=== PATIENT | male | born 1945 | race Hispanic/Latino ===

== ENCOUNTER 2017-10-28 06:50 | Day surgery (SDC) | payer MEDICARE, BC ==
[2017-01-11 09:44] VITALS: BMI 23.7
[2017-10-28 07:53] LABS: BASO # 0.03 K/mm3 (0.0-2.0); BASO % 0.4 % (0.0-3.0); EOS # 0.1 (0.0-0.7); EOS % 1.3 % (1.5-5.0); GRAN # 4.59 (1.4-6.5); GRAN % 61.6 % (50.0-68.0); HEMOGLOBIN 14.9 g/dL (14.0-18.0); LYMPH # 2.2 (1.2-3.4); LYMPH % 29.5 % (22.0-35.0); MEAN CORPUSCULAR HEMOGLOBIN 33.9 pg (25.0-35.0); MEAN CORPUSCULAR HGB CONC 34.9 g/dl (31.0-37.0); MEAN PLATELET VOLUME 9.8 fl (7.0-11.0); MONO # 0.5 (0.1-0.6); MONO % 7.2 % (1.0-6.0); RBC 4.4 10^6/uL (3.5-6.1); RED CELL DISTRIBUTION WIDTH 12.8 % (11.5-14.5); WHITE BLOOD COUNT 7.5 10^3/ul (4.5-11.0)
[2017-10-28 08:00] LABS: BLOOD UREA NITROGEN 20 mg/dL (7-21); GFR AFRICAN-AMERICAN > 60; GFR NON-AFRICAN AMERICAN 50; HDL CHOLESTEROL 62 mg/dL (29-60)
[2017-10-28 08:07] LABS: INR 1.01 (0.93-1.08); PARTIAL THROMBOPLASTIN TIME 30.4 Seconds (25.1-36.5); PROTHROMBIN TIME 11.6 SECONDS (9.4-12.5)
[2017-10-28 08:10] LABS: LDL CHOLESTEROL 51 mg/dL (0-129)
[2017-10-28] MEDS ORDERED: Potassium Chloride 20 mEq ER Tab PO ONE (08:24)
[2017-10-28] MEDS ORDERED: Lidocaine PF 2% (5 ml) Inj (For Cardiac Arrhy) IV ONE (08:34)
[2017-10-28] MEDS ORDERED: Phenylephrine 10 mg/ml Inj ONE ×2 (08:34→10:45)
[2017-10-28] MEDS ORDERED: Nitroglycerin 50mg in D5W 0 MG/0 ML BOTTLE IV ONE ×2 (08:34→10:45)
[2017-10-28] MEDS ORDERED: Iodixanol 320 MG/ML 200 ML BOTTLE IV ONE (08:36)
[2017-10-28] MEDS ORDERED: Iodixanol 320 MG/ML 100 ML BOTTLE IV ONE (08:36)
[2017-10-28] MEDS ORDERED: Iohexol 350mgl/ml 50 ML ONE (08:36)
[2017-10-28] MEDS ORDERED: Midazolam 2 MG/2 ML VIAL ONE ×3 (08:56→09:23)
--- NOTE | 2017-10-28 10:48 | CARDCATH ---
PROCEDURE DATE: 10/28/2017 CARDIAC CATHETERIZATION AND PTCA HISTORY: The patient is a 72-year-old male, who presented with an abnormal stress test. There were PVCs as well as ST depressions during his exercise. Because of his left main stenting that was performed at [place], and the patient with a history of diffuse atherosclerosis, a cardiac catheterization was recommended. PROCEDURE: Left heart catheterization with coronary arteriography and left ventriculogram followed by PTCA and stent of an RCA. The right femoral artery was cannulated with a 6-B[place] sheath. There were no complications. I performed moderate sedation, which included the presence of an independent trained observer that assisted in monitoring the patient's level of consciousness and physiologic status. After administration of Versed and fentanyl, my intra service time was 30 minutes. The findings on catheterization revealed a left ventricle that contracted normally. Estimated ejection fraction of 60-70%. The patient had a codominant circulation. The RCA revealed diffuse atherosclerosis with diffusely tortuous and calcified with a new eccentric 90% stenosis in the midportion. There was a 40-50% stenosis in the proximal portion. The left main artery review was patent with a patent stent in the distal left main artery. The LAD and diagonal vessels revealed diffuse atherosclerosis without critical lesions. The ostium of the circumflex had a 40-50% stenosis. The patient was started on Angiomax on the fluoroscopic guide, the guiding catheter was placed in the ostium of the RCA. An ATW wire was used to cross the critical lesion. A 2 balloon was utilized to dilate the lesion and stents would not cross past the proximal portion of the vessel due to the marked tortuosity and the calcification despite using extra support techniques including a guideliner. Repeat coronary arteriography revealed a residual 30-40% stenosis in the mid RCA. Angio-Seal was used to close the femoral artery site. The patient tolerated the procedure well. IMPRESSION: 1. In summary, the procedure was successful for percutaneous transluminal coronary angioplasty of a 90% mid right coronary artery stenoses. Stent would not cross due to the marked tortuosity and calcification in the proximal vessel. 2. Cardiac catheterization revealed a patent stent in the left main artery, 50% ostial circumflex stenosis, which is unchanged from his previous. 3. A new 90% stenosis in the mid right coronary artery and a codominant circulation. 4. Left ventricular function is normal. PLAN: Given these findings, the patient will remain on the same medication, which includes aspirin as well as Brilinta. He will continue the cardiac risk reduction program. Rudy Vo MD
--- NOTE | 2017-10-28 10:57 | CARD ---
APPROVED REPORT Date of service: 10/28/2017 EKG Measurement Heart [id number] [place] 158P60 [id number] <Conclusion> Normal sinus rhythm Possible Left atrial enlargement Septal infarct, age Old. Abnormal ECG
[2017-10-28 15:23] VITALS: RESP 20
--- NOTE | 2017-10-28 16:13 | CARD ---
APPROVED REPORT Date of service: 10/28/2017 EKG Measurement Heart [id number] [place] 182P51 [id number] <Conclusion> Marked sinus bradycardia Left ventricular hypertrophy with repolarization abnormality Cannot rule out Septal infarct, age undetermined Abnormal ECG
[2017-10-28] MEDS: Sodium Chloride 0.9% 1,000 ML IV SCH ×2 (17:30→20:00)
[2017-10-29 00:01] VITALS: TEMP 98.4; O2SAT 96
[2017-10-29 06:52] VITALS: BP 159/72
[2017-10-29 06:59] LABS: BASO # 0.04 K/mm3 (0.0-2.0); BASO % 0.5 % (0.0-3.0); EOS # 0.1 (0.0-0.7); EOS % 1.9 % (1.5-5.0); GRAN # 4.53 (1.4-6.5); GRAN % 62.3 % (50.0-68.0); HEMOGLOBIN 13.5 g/dL (14.0-18.0); LYMPH # 2.1 (1.2-3.4); LYMPH % 28.2 % (22.0-35.0); MEAN CELL VOLUME 98.8 fl (80.0-105.0); MEAN CORPUSCULAR HGB CONC 33.4 g/dl (31.0-37.0); MONO # 0.5 (0.1-0.6); MONO % 7.1 % (1.0-6.0); RBC 4.09 10^6/uL (3.5-6.1); WHITE BLOOD COUNT 7.3 10^3/ul (4.5-11.0)
[2017-10-29 07:46] LABS: BLOOD UREA NITROGEN 20 mg/dL (7-21); CALCIUM 8.4 mg/dL (8.4-10.5); GFR AFRICAN-AMERICAN > 60; GFR NON-AFRICAN AMERICAN 50
[2017-10-29] MEDS ORDERED: Metoprolol Succinate 50 mg XL Tab PO SCH ×2 (08:00→10:00)
[2017-10-29] MEDS: Sodium Chloride 0.9% 1,000 ML IV SCH (08:14)
[2017-10-29 08:38] VITALS: PULSE 75
--- NOTE | 2017-10-29 12:12 | CARD ---
APPROVED REPORT Date of service: 10/29/2017 EKG Measurement Heart [id number] [place] 168P59 [id number] <Conclusion> Sinus bradycardia with premature atrial complexes Possible Left atrial enlargement Left ventricular hypertrophy with repolarization abnormality Cannot rule out Septal infarct, age undetermined Abnormal ECG
--- NOTE | 2017-10-29 12:43 | DS ---
REASON FOR DICTATION: Covering Dr. Rudy Vo. BRIEF CLINICAL HISTORY: A 72-year-old female with abnormal stress test, underwent yesterday cardiac catheterization and balloon angioplasty of RCA was done. The patient remained stable. Today, denies any chest pain, shortness of breath or any palpitation. PHYSICAL EXAMINATION: VITAL SIGNS: Temperature afebrile, heart rate 75, blood pressure 150/74. HEENT: PERRLA. Extraocular muscles intact. NECK: Supple. No carotid bruit. No thyromegaly. CHEST: Clear to auscultation. HEART: S1 and S2 regular. ABDOMEN: Soft. EXTREMITIES: Clubbing and cyanosis negative. LABORATORY DATA: Blood workup as follows; WBC 7.3, hemoglobin 13.5, hematocrit 40.4, platelet count 240. Chemistry shows sodium 130, potassium 4, chloride 102, carbon dioxide 28, anion gap of 12, BUN 20, creatinine 1.4. IMPRESSION: Abnormal stress test, status post stent in the past, history of percutaneous transluminal coronary angioplasty, plain balloon angioplasty of right coronary artery, stable. RECOMMENDATION: Discharge home. Follow up with Dr. Vo in 1 week. Continue Brilinta 60 mg p.o. b.i.d. Continue losartan. Continue aspirin. Continue atorvastatin. As the patient's said, the patient had medications at home. We will continue to follow up with Dr. Vo in 1 week. Stone Garcia MD
[2017-10-30] MEDS ORDERED: Metoprolol Succinate 50 mg XL Tab PO SCH (10:00)
== END 2017-10-29 11:36 | disposition home or self-care (01) ==
LOC: CATH 06:50 → 2RSO 10:16 → CATH 10-29 11:36
PROVIDERS: ATTEND Internal Medicine Cardiovascular Disease
DX: I25.10 Atherosclerotic heart disease of native coronary artery without angina pectoris (principal); I10 Essential (primary) hypertension; I49.3 Ventricular premature depolarization; Z95.5 Presence of coronary angioplasty implant and graft; R94.39 Abnormal result of other cardiovascular function study
CPT/HCPCS: 36415 ×2; 80048 ×2; 80061; 85025 ×2; 85610; 85730; 86850; 86900; 92920; 93005 ×2; 93458; 99152; C1725; C1760; C1769 ×2; C1874 ×2; C1887 ×2; C1894; J0583; J1644; J2250; J3010; J7030; Q9966; Q9967

== ENCOUNTER 2018-04-21 10:05 | Outpatient (CLI) | payer MEDICARE, BC | END 2018-04-21 10:06 | disposition home or self-care (01) | LOC: LAB 10:05 | DX: I25.10 Atherosclerotic heart disease of native coronary artery without angina pectoris (principal) ==

== ENCOUNTER 2018-04-28 06:26 | Outpatient (CLI) | payer MEDICARE | END 2018-04-28 06:27 | disposition home or self-care (01) | LOC: CARDIO 06:26 ==

== ENCOUNTER 2018-05-19 08:23 | Day surgery (SDC) | payer MEDICARE ==
[2018-04-28 09:53] VITALS: BMI 24.3
[2018-05-19] MEDS ORDERED: Propofol 10 mg/ml Inj (20 ML) ONE (09:56)
[2018-05-19] MEDS ORDERED: Sodium Chloride 0.9% 1,000 ML IV SCH (10:15)
[2018-05-19 13:30] VITALS: BP 179/79; PULSE 62; RESP 18; TEMP 97.7; O2SAT 98
== END 2018-05-19 12:59 | disposition home or self-care (01) ==
LOC: ENDO 08:23
PROVIDERS: ATTEND Internal Medicine Gastroenterology
DX: D12.8 Benign neoplasm of rectum (principal); K57.30 Diverticulosis of large intestine without perforation or abscess without bleeding; R19.4 Change in bowel habit; K64.8 Other hemorrhoids; I25.10 Atherosclerotic heart disease of native coronary artery without angina pectoris; I10 Essential (primary) hypertension
CPT/HCPCS: 45381; 45385; 88305; J2001; J2704; J7030; J7040

== ENCOUNTER 2018-06-08 09:17 | Outpatient (CLI) | payer MEDICARE | END 2018-06-08 09:18 | disposition home or self-care (01) | LOC: LAB 09:17 | DX: R10.9 Unspecified abdominal pain (principal) ==

== ENCOUNTER 2018-08-08 08:18 | Outpatient (CLI) | payer MEDICARE | END 2018-08-08 08:19 | disposition home or self-care (01) | LOC: LAB 08:18 ==